=== PATIENT | female | born 1995 | race Caucasian/White ===

== ENCOUNTER 2018-10-04 16:38 | Emergency (ER) | payer BC ==
[2018-10-04] MEDS ORDERED: RINGERS SOLUTION,LACTATED 1,000 ML IV ONE (17:54)
--- NOTE | 2018-10-04 18:02 | ER Document Report ---
ED Medical Screen (RME) - General Chief Complaint: High Blood Sugar Stated Complaint: BLOOD SUGAR ISSUES Time Seen by Provider: 10/04/18 17:53 Notes: Patient is a 23-year-old female presents to the emergency room with polyuria and polydipsia. Patient states she knows that her sugars have been elevated the last couple days. States she took 10 units of NovoLog at around 11:00 this morning. States she has recently moved to the area and has been unable to find an plumbing mechanic does not have a primary care provider visits until 2 weeks. States she has been attempting to ration the insulin she has left. Patient is denying any vomiting, fever. GENERAL: Alert, interacts well. No acute distress. ABDOMEN: Soft, non-tender. Non-distended. Bowel sounds present in all 4 quadrants. SKIN: Warm, dry, normal turgor. No rashes or lesions noted. I have greeted and performed a rapid initial assessment of this patient. A comprehensive ED assessment and evaluation of the patient, analysis of test results and completion of the medical decision making process will be conducted by additional ED providers. This medical record was dictated with voice recognizing software. There may be grammatical, syntax errors that are unintended. TRAVEL OUTSIDE OF THE [place] IN LAST 30 DAYS: No - Related Data Allergies/Adverse Reactions: adhesive tape Allergy (Verified 10/04/18 16:41) Penicillins Allergy (Verified 10/04/18 16:41) Past Medical History - Social History Frequency of alcohol use: None Drug Abuse: None Renal/ Medical History: Denies: Hx Peritoneal Dialysis Physical Exam - Vital signs Vitals: Temp Pulse Resp BP Pulse Ox 98.1 F 84 16 122/79 97 10/04/18 17:12 10/04/18 17:12 10/04/18 17:12 10/04/18 17:12 10/04/18 17:12 Course - Vital Signs Vital signs: Temp Pulse Resp BP Pulse Ox 98.1 F 84 16 122/79 97 10/04/18 17:12 10/04/18 17:12 10/04/18 17:12 10/04/18 17:12 10/04/18 17:12 - Laboratory Laboratory results interpreted by me: 10/04/18 17:46 POC Glucose > 550 H*
[2018-10-04 18:06] LABS: APPEARANCE,URINE CLEAR; BILIRUBIN,URINE NEGATIVE (NEGATIVE); COLOR,URINE STRAW; GLUCOSE, URINE >=500 mg/dL (NEGATIVE); KETONES,URINE TRACE mg/dL (NEGATIVE); LEUKOCYTE ESTERASE,URINE NEGATIVE (NEGATIVE); NITRITE,URINE NEGATIVE (NEGATIVE); PROTEIN,URINE NEGATIVE (NEGATIVE); UROBILINOGEN,URINE NEGATIVE mg/dL (<2.0)
[2018-10-04 19:10] LABS: ABSOLUTE LYMPHOCYTES (AUTO) 1.8 10^3/uL (0.5-4.7); ABSOLUTE MONOCYTES (AUTO) 0.3 10^3/uL (0.1-1.4); ABSOLUTE NEUT (AUTO) 5.7 10^3/uL (1.7-8.2); BASOPHILS % (AUTO) 0.4 % (0-2); EOSINOPHILS % (AUTO) 0.5 % (0-6); HEMATOCRIT 41.7 % (36.0-47.0); HEMOGLOBIN 13.8 g/dL (12.0-15.5); LYMPHOCYTES % (AUTO) 22.7 % (13-45); MEAN CORPUSCULAR HEMOGLOBIN 29.3 pg (27.0-33.4); MEAN CORPUSCULAR HGB CONC 33.1 g/dL (32.0-36.0); MEAN CORPUSCULAR VOLUME 89 fl (80-97); MONOCYTES % (AUTO) 3.9 % (3-13); PLATELET COUNT 239 10^3/uL (150-450); RED BLOOD COUNT 4.71 10^6/uL (3.72-5.28); RED CELL DISTRIBUTION WIDTH 12.6 % (11.5-14.0); SEGMENTED NEUTROPHILS % (AUTO) 72.5 % (42-78); TOTAL CELLS COUNTED % (AUTO) 100 %; WHITE BLOOD COUNT 7.8 10^3/uL (4.0-10.5)
[2018-10-04 19:11] LABS: VENOUS BLOOD BASE EXCESS -1.6 mmol/L; VENOUS BLOOD HCO3 24.6 mmol/L (20-32); VENOUS BLOOD PCO2 46.6 mmHg (35-63); VENOUS BLOOD PH 7.34 (7.30-7.42)
[2018-10-04 21:46] LABS: ALANINE AMINOTRANSFERASE 26 U/L (9-52); ALBUMIN 3.8 g/dL (3.5-5.0); ALKALINE PHOSPHATASE 104 U/L (38-126); ANION GAP 10 (5-19); ASPARTATE AMINO TRANSFERASE 19 U/L (14-36); BILIRUBIN,DIRECT 0.2 mg/dL (0.0-0.4); BILIRUBIN,TOTAL 0.5 mg/dL (0.2-1.3); BLOOD UREA NITROGEN 8 mg/dL (7-20); CARBON DIOXIDE 21 mmol/L (22-30); CHLORIDE 101 mmol/L (98-107); GLUCOSE 386 mg/dL (75-110); POTASSIUM 4.1 mmol/L (3.6-5.0); TOTAL PROTEIN 6.5 g/dL (6.3-8.2)
[2018-10-04] MEDS ORDERED: INSULIN REG, HUMAN 100 UNIT/ML 3 ML VIAL (PYX) SUBCUT ONE (21:52)
--- NOTE | 2018-10-04 21:59 | ER Document Report ---
ED General - General Chief Complaint: High Blood Sugar Stated Complaint: BLOOD SUGAR ISSUES Time Seen by Provider: 10/04/18 17:53 Notes: Patient is a 23-year-old female with a past medical history of insulin-dependent type 1 diabetes who presents due to concerns of high blood sugar due to rationing her insulin. Patient states that she has been rationing her insulin since she moved from [place] due to not yet being able to establish primary care contact here in [place]. She denies any symptoms. She states her only concern is that her blood sugars have been running high and she does not want to going to but ketoacidosis. She does admit to some polyuria and polydipsia. States that she has had similar symptoms in the past and her blood sugar has gone high. She states that she knows that she had her insulin her blood sugars to be better regulated. TRAVEL OUTSIDE OF THE [place] IN LAST 30 DAYS: No - HPI Onset: Other - 3 weeks Onset/Duration: Gradual Quality of pain: No pain Severity: Moderate Pain Level: Denies Associated symptoms: None Exacerbated by: Denies Relieved by: Denies Similar symptoms previously: No Recently seen / treated by doctor: No - Related Data Allergies/Adverse Reactions: adhesive tape Allergy (Verified 10/04/18 16:41) Penicillins Allergy (Verified 10/04/18 16:41) Past Medical History - General Information source: Patient - Social History Smoking Status: Never Smoker Frequency of alcohol use: None Drug Abuse: None Lives with: Family Family History: Reviewed & Not Pertinent Patient has suicidal ideation: No Patient has homicidal ideation: No Renal/ Medical History: Denies: Hx Peritoneal Dialysis Review of Systems - Review of Systems Notes: Constitutional: Negative for fever. HENT: Negative for sore throat. Eyes: Negative for visual changes. Cardiovascular: Negative for chest pain. Respiratory: Negative for shortness of breath. Gastrointestinal: Negative for abdominal pain, vomiting or diarrhea. Genitourinary: Negative for dysuria. Musculoskeletal: Negative for back pain. Skin: Negative for rash. Neurological: Negative for headaches, weakness or numbness. 10 point ROS negative except as marked above and in HPI. Physical Exam - Vital signs Vitals: Temp Pulse Resp BP Pulse Ox 98.1 F 84 16 122/79 97 10/04/18 17:12 10/04/18 17:12 10/04/18 17:12 10/04/18 17:12 10/04/18 17:12 Interpretation: Normal Notes: PHYSICAL EXAMINATION: GENERAL: Well-appearing, well-nourished and in no acute distress. HEAD: Atraumatic, normocephalic. EYES: Pupils equal round and reactive to light, extraocular movements intact, sclera anicteric, conjunctiva are normal. ENT: nares patent, oropharynx clear without exudates. Moist mucous membranes. NECK: Normal range of motion, supple without lymphadenopathy LUNGS: Breath sounds clear to auscultation bilaterally and equal. No wheezes rales or rhonchi. HEART: Regular rate and rhythm without murmurs ABDOMEN: Soft, nontender, normoactive bowel sounds. No guarding, no rebound. No masses appreciated. EXTREMITIES: Normal range of motion, no pitting or edema. No cyanosis. NEUROLOGICAL: No focal neurological deficits. Moves all extremities spontaneously and on command. PSYCH: Normal mood, normal affect. SKIN: Warm, Dry, normal turgor, no rashes or lesions noted. Course - Re-evaluation Re-evalutation: 10/04/18 21:58 Presentation of asymptomatic hyperglycemia. Patient has been rationing her insulin due to recently moving from [place] and yet being unable to establish primary care. She is primarily requesting refill of her insulin. There is no evidence of HHS or diabetic ketoacidosis on laboratories or based on clinical history. Patient's vitals are within normal limits. They deny any acute focal complaints. Treatment with insulin and IV fluids given here in the emergency department with appropriate response of the blood sugar. Patient does have primary care follow-up. At this time will discharge with return precautions and follow-up recommendations. Verbal discharge instructions given a the bedside and opportunity for questions given. Medication warnings reviewed. Patient is in agreement with this plan and has verbalized understanding of return precautions and the need for primary care follow-up in the next 24-72 hours. - Vital Signs Vital signs: Temp Pulse Resp BP Pulse Ox 98.0 F 71 16 103/75 98 10/04/18 22:16 10/04/18 22:16 10/04/18 22:16 10/04/18 22:16 10/04/18 22:16 - Laboratory Result Diagrams: 10/04/18 18:58 10/04/18 21:00 Laboratory results interpreted by me: 10/04/18 10/04/18 10/04/18 17:18 17:46 20:52 Sodium Carbon Dioxide Creatinine Glucose POC Glucose > 550 H* 362 H Urine Glucose (UA) >=500 H Urine Ketones TRACE H 10/04/18 21:00 Sodium 132.0 L Carbon Dioxide 21 L Creatinine 0.39 L Glucose 386 H POC Glucose Urine Glucose (UA) Urine Ketones Discharge - Discharge Clinical Impression: Hyperglycemia due to type 1 diabetes mellitus Condition: Good Disposition: HOME, SELF-CARE Additional Instructions: You need to followup urgently with your primary care doctor as your blood sugars were dangerously high today. You did not have any evidence of a dangerous condition associated with these blood sugars at this time. However, it is very important that you get your blood sugars under control. Please take all of your medications exactly as directed. Please return to emergency department immediately if you develop weakness, persistent vomiting, confusion, or any other symptoms that are concerning to you. Prescriptions: Insulin Detemir [Levemir] 10 unit SQ QHS 30 Days vial Insulin Lispro [Humalog Insulin (Lispro) 100 unit/mL] 0 - 12 unit [facility] PRN #2 vial PRN Reason:
[2018-10-04 22:16] VITALS: BP 103/75
== END 2018-10-04 22:16 | disposition home or self-care (01) ==
LOC: ER 16:38
DX: E10.65 Type 1 diabetes mellitus with hyperglycemia (principal); T38.3X6A Underdosing of insulin and oral hypoglycemic [antidiabetic] drugs, initial encounter; Z91.128 Patient's intentional underdosing of medication regimen for other reason; Z91.14 Patient's other noncompliance with medication regimen; Z91.048 Other nonmedicinal substance allergy status; Z88.0 Allergy status to penicillin
CPT/HCPCS: 99284; 96360; 36415; 82962; 85025; 81025; 80053; 81001; 82803; J1815; J7120